=== PATIENT | male | born 1955 | race Caucasian/White ===

== ENCOUNTER 2017-01-03 11:03 | Day surgery (SDC) | payer BC, SELFPAY ==
[2017-01-01 16:26] LABS: HEMATOCRIT 32.5 % (40.0-51.0); HEMOGLOBIN 11.1 g/dL (13.6-17.8)
[2017-01-01 16:43] LABS: CALCIUM, SERUM 8.6 MG/DL (8.5-10.4); CHLORIDE, SERUM 109 MMOL/L (96-112); CO2 (CARBON DIOXIDE) 21 MMOL/L (24-34); CREATININE 4.55 MG/DL (0.70-1.30); GFR AFRICAN AMERICAN 15 ML/MIN (>=60); GFR NON AFRICAN AMERICAN 13 ML/MIN (>=60); GLUCOSE, SERUM 119 MG/DL (60-99); SODIUM, SERUM 141 MMOL/L (135-148)
[2017-01-01 16:44] LABS: BUN (BLOOD UREA NITROGEN) 52 MG/DL (6-23); POTASSIUM, SERUM 4.4 MMOL/L (3.5-5.3)
--- NOTE | ~2017-01-03 | OP ---
Record Of Operation [facility] [address] [place]. [address] NAME: FANY OSORIO JR : 59 STATUS : [facility]#: [id number] AGE: 61 ADM/REG DATE : 01/03/17 MR#: [id number] REPORT SERV DATE: 01/04/17 DICTATED BY: YAW QUINN DATE: 01/04/17 REPORT STATUS : Draft TRANSCRIBED BY: FATEMEH DATE: 01/04/17 DATE OF PROCEDURE: 01/03/2017 PREOPERATIVE DIAGNOSIS: Chronic kidney disease, stage IV. POSTOPERATIVE DIAGNOSIS: Chronic kidney disease, stage IV. PROCEDURE: Left radiocephalic arteriovenous fistula. SURGEON: Yaw Quinn M.D. SOFTWARE DEVELOPMENT COORDINATOR: Vazquez. ANESTHESIA: Block. INDICATIONS: The patient is a 61-year-old gentleman with a history of chronic kidney disease, stage IV. He needs longer term dialysis access. I talked to him about the risks, benefits, and alternatives of intervention. He agreed to proceed. DESCRIPTION OF PROCEDURE: After informed consent was obtained, the patient's left upper extremity was prepped and draped in the usual sterile fashion. I began with an ultrasound examination of the left upper extremity and found that the cephalic vein measured about 3 mm in diameter at the level of the wrist. The radial artery was also about 3 mm in diameter. I then made a longitudinal skin incision along the wrist. Cautery was used to deepen the incision. I dissected out the cephalic vein at a confluence point. I ligated and divided it. I spatulated the distal end. I marked the vein for orientation. I systemically heparinized. I controlled the radial artery. I created a longitudinal arteriotomy under which I sewed the end of the cephalic vein. I flushed of air and debris before tying down the sutures. There was a good thrill within the fistula. I achieved hemostasis, washed out the wound, and closed the wound in layers. The patient tolerated the procedure well without any intraprocedural complications noted. VENU/FATEMEH Yaw Quinn M.D. / [id number] CC: Keesha Miguel M.D.
[~2017-01-03 11:03] MED LIST: ASAB PO; ATEN25 PO; CELEXA20 PO; CHANTIX1 PO; CRAN CONC500 MG PO; DCN100 PO; DEMA20 PO; FISH-EPA1000 MG PO; IRON PO; L40 PO; LIPITOR20 PO; LORTAB10 PO; MAGOX4 PO; MAX25 PO; MIRAPEX1 MG PO; MIRAPEX1.5 MG PO; MIRAPEX5 PO; MULTIPLE VIT PO; NABUMETONE750 MG PO; NEXIUM40 PO; PRAVAC PO; PRAVACHOL40 MG PO; PRILOSEC OTC20 MG PO; PRILOSEC40 MG PO; PRIN5 PO; SINGULAIR1 PO; VIAGRA100 MG PO; VITAMIN B-121000 MC1 SL; VITAMIN D31000 UNIT PO; VITC500 PO; WELLXL150 PO; Z100 PO; Z300 PO
[2017-04-07] MEDS ORDERED: RENA-VITE PO (17:09)
[2017-04-07] MEDS ORDERED: K500 PO (17:15)
[2017-04-07] MEDS ORDERED: DEMA20 PO (17:19)
[2017-06-03] MEDS ORDERED: ULTRAM50 PO (16:32)
== END 2017-01-03 16:52 | disposition home or self-care (01) ==
LOC: SDC 11:03
PROVIDERS: Surgery
PROC: 031C0JF Bypass Left Radial Artery to Lower Arm Vein with Synthetic Substitute, Open Approach (ICD-10-PCS; principal; 2017-01-03 13:00)
DX: I12.9 Hypertensive chronic kidney disease with stage 1 through stage 4 chronic kidney disease, or unspecified chronic kidney disease (principal); N18.4 Chronic kidney disease, stage 4 (severe); M10.9 Gout, unspecified; D64.9 Anemia, unspecified; M19.90 Unspecified osteoarthritis, unspecified site; F17.210 Nicotine dependence, cigarettes, uncomplicated; Z82.49 Family history of ischemic heart disease and other diseases of the circulatory system; Z82.5 Family history of asthma and other chronic lower respiratory diseases; Z98.890 Other specified postprocedural states; Z88.8 Allergy status to other drugs, medicaments and biological substances; Z79.899 Other long term (current) drug therapy; Z79.52 Long term (current) use of systemic steroids; Z99.89 Dependence on other enabling machines and devices; Z88.5 Allergy status to narcotic agent
CPT/HCPCS: 36821; 80048; 85014; 85018; J0690; J2250; J2795; J3010